=== PATIENT | male | born 1950 | race Caucasian/White ===

== ENCOUNTER 2021-11-20 14:39 | Outpatient (CLI) | payer MEDICARE, SELFPAY ==
--- NOTE | ~2021-11-20 | MR_ITS ---
EXAMINATION: MR cervical spine wo con DATE: 11/20/2021 15:21 INDICATION: Neck pain. TECHNIQUE: Magnetic resonance imaging (MRI) of the cervical spine was performed without intravenous c ontrast. Sequences included sagittal T2-weighted FSE, sagittal T2-weighted FS FSE, sagittal T1-weight ed FSE, axial MERGE, and axial T2-weighted FSE. COMPARISON: None FINDINGS: There is 3 degrees levocurvature of cervicothoracic spine. There is 2 mm anterolisthesis of C3 on C4 and C4 on C5. Vertebral body heights are normal. There is mildly decreased disc height at C 3-C4 and severely decreased disc height at C5-C6 and C6-C7. Osseous central spinal canal is developme ntally small. The spinal cord signal intensity is normal, but sensitivity is decreased by artifact. T here is increased T2-weighted signal intensity in the rian, likely chronic small vessel ischemic dise ase. The following disc levels are specifically discussed: C2-C3: The disc does not extend beyond the endplate margin. There is no uncovertebral joint osteoarth ritis. There is mild bilateral facet joint osteoarthritis. There is no neural foraminal stenosis. The re is no central canal stenosis. C3-C4: There is a central protrusion. There is moderate bilateral uncovertebral joint osteoarthritis. There is severe bilateral facet joint osteoarthritis. There is moderate bilateral neural foraminal s tenosis. There is moderate central canal stenosis with ventral and dorsal indentation of the spinal c ord. C4-C5: The disc is bulging. There is mild bilateral uncovertebral joint osteoarthritis. There is paulina re bilateral facet joint osteoarthritis. There is moderate bilateral neural foraminal stenosis. There is moderate central canal stenosis with ventral and dorsal indentation of the spinal cord. C5-C6: The disc is bulging. There is severe bilateral uncovertebral joint osteoarthritis. There is mo derate bilateral facet joint osteoarthritis. There is moderate bilateral neural foraminal stenosis. T here is moderate central canal stenosis with ventral and dorsal indentation of spinal cord. C6-C7: The disc is bulging. There is severe bilateral uncovertebral joint osteoarthritis. There is mo derate bilateral facet joint osteoarthritis. There is mild right and moderate left neural foraminal s tenosis. There is moderate central canal stenosis with ventral and dorsal indentation of the spinal c ord. C7-T1: There is a central protrusion. There is no uncovertebral joint osteoarthritis. There is severe bilateral facet joint osteoarthritis. There is mild bilateral neural foraminal stenosis. There is no central canal stenosis. IMPRESSION: 1. Severe cervical spondylosis. Reviewed, dictated and finalized at location A.
== END 2021-11-20 14:40 | disposition home or self-care (01) ==
PROVIDERS: PCP Family Medicine; Visit Provider Orthopaedic Surgery
DX: M47.22 Other spondylosis with radiculopathy, cervical region (principal)
CPT/HCPCS: 72141